=== PATIENT | female | born 1995 | race Caucasian/White ===

== ENCOUNTER 2022-01-17 20:13 | Emergency (ER) | payer OTHER, SELFPAY ==
[2022-01-17 20:40] VITALS: BP 98/71; PULSE 104; RESP 16; TEMP 36.8; O2SAT 98; BMI 31.4
--- NOTE | 2022-01-17 21:41 | ED.FEMALEGU ---
HPI - Female Genitourinary General Chief complaint: Urogenital-Female Stated complaint: tampon stuck Time Seen by Provider: 01/17/22 21:34 History of Present Illness HPI Narrative: Patient is a 26-year-old female presented today with having a tampon stuck she was not able to remove. Presented to ED for help. Patient's tampon been stuck for 2 days. Denies any systemic complaints. Related Data Allergies Allergy/AdvReac Type Severity Reaction Status Date / Time No Known Allergies Allergy Verified 01/17/22 21:35 Review of Systems Review of Systems: No chest pain or shortness breath no nausea no vomiting Yes all other systems are reviewed and are negative PMFSH Past Medical History Attestation statement: The following information was validated with the patient. Physical Exam Vital Signs: Vital Signs: Last Vital Signs Temp 98.3 F 01/17/22 20:40 Pulse 104 H 01/17/22 20:40 Resp 16 01/17/22 20:40 BP 98/71 01/17/22 20:40 Pulse Ox 98 01/17/22 20:40 O2 Del Method 01/17/22 20:40 BMI result Body Mass Index 31.4 Appearance: Alert. Oriented X3. No acute distress. Eyes: Pupils equal, round and reactive to light. ENT: Pharynx normal. Neck: Normal inspection. Neck supple. No lymph nodes noted. No crepitus CVS: Normal heart rate and rhythm. Pulses normal. Normal S1 and S2 Respiratory: No respiratory distress. Breath sounds normal. No Wheezing. No rales Abdomen: Soft and nontender. No rigidity. No distention. good BS x4 Skin: Skin warm and dry. Normal skin color. Normal skin turgor. Extremities: No lower extremity edema. Neurovascular intact to all extremities. No Lacerations. No Rash Neuro: Oriented X 3. No motor deficit. No sensory deficit. Moving all extermities. No slurred speech Pelvic exam was done with nurse Smith present. There is a tampon noted in the vagina. It was taken out. There was no complications. MDM - Female Genitourinary MDM Narrative Medical decision making narrative: Foreign body was removed there was no complications Procedures Procedure Narrative Procedure Narrative: Patient's tampon was removed during physical exam. With nursing present. Nurse Smith was present during the entire case. There was no complication. There is no other foreign object noted. A bimanual exam after the tampon removal there is no other foreign object noted. There is no adnexal tenderness. Discharge Plan Discharge Clinical Impression: Foreign body (FB) in soft tissue Patient Disposition: Home, Self-Care Additional Instructions: Please be careful when you placing a tampon.
--- NOTE | 2022-01-17 21:57 | PC.NURSE ---
patient reported no pain at time of discharge. verbalized understanding of discharge plan.
== END 2022-01-17 21:58 | disposition home or self-care (01) ==
PROVIDERS: Emergency Provider Emergency Medicine Emergency Medical Services
DX: T19.2XXA Foreign body in vulva and vagina, initial encounter (principal); M79.5 Residual foreign body in soft tissue; X58.XXXA Exposure to other specified factors, initial encounter; Y93.9 Activity, unspecified; Y92.9 Unspecified place or not applicable; Y99.9 Unspecified external cause status
CPT/HCPCS: 99283; 99284